=== PATIENT | female | born 1965 | race Caucasian/White ===

== ENCOUNTER → 2016-07-30 | Outpatient (CLI) | payer MEDICAID ==
--- NOTE | 2016-08-03 11:34 | RADIOLOGY REPORT PS360 ---
DIG MAMM-SCREEN JOSE W/CAD CAD Screening COMPARISON: Digital mammograms 10/12/2012 and 07/20/2015 INDICATION: There is a history of breast cancer in patient's maternal aunt TECHNIQUE: Standard CC and MLO images were obtained. R2 CAD reviewed. FINDINGS: The breasts are composed primarily of fat with scattered fiber glandular densities throughout both breast again showing more prominent glandular elements in the subareolar region of the right breast when compared to the left this asymmetry is stable and unchanged from previous studies. There is no new or suspicious lesion in either breast and there are no suspicious microcalcifications. IMPRESSION: Fatty type breast parenchyma with no suspicious lesion seen recommend yearly follow-up BI-RADS CATEGORY: 1_Negative RECOMMENDED FOLLOWUP: 12M 12 MONTH FOLLOW-UP (A letter has been sent to the patient regarding results of the study.)
== END ==
LOC: RAD 09:19
DX: Z12.31 Encounter for screening mammogram for malignant neoplasm of breast (principal)
CPT/HCPCS: G0202

== ENCOUNTER 2016-11-18 06:09 | Day surgery (SDC) | payer MEDICAID ==
[~2016-11-18] VITALS: Ht 149.9 cm; Wt 80.3 kg
--- NOTE | 2016-11-18 07:53 | Operative Note ---
Procedure/Operative Record Date of Procedure: 11/18/16 Referring physician: Dr. Smith Pre-op diagnosis: Postmenopausal bleeding Post-op diagnosis: 1. Postmenopausal bleeding 2. Endometrial polyps. 3. RIGHT ovarian cyst (by ultrasound). Procedure performed: 1. Diagnostic hysteroscopy. 2. Endometrial polypectomy. 3. Fractional Dilatation and curettage. Surgeon: Darien Oneill Anesthesia: Gen., [employer] [facility], [place] Indications: Postmenopausal bleeding Description of procedure: After the patient was prepped and draped in usual fashion and general anesthesia was administered, examination under anesthesia revealed a normal-sized anteverted uterus, with no palpable adnexal masses (a transvaginal ultrasound shows a 2.5 cm RIGHT ovarian cyst). A weighted speculum was placed within the posterior fourchette of the vagina, and the anterior lip of the cervix was grasped with a single-tooth tenaculum. A small curette was introduced into the endocervix, with retrieval of a small amount of mucoid tissue. Uterus was then sounded in an anteverted direction to 7 cm, and easily dilated to number 20 Hegar dilators. A 1.5 percent glycine as a distending medium, and operating hysteroscope was introduced into the endometrial cavity. With the exception of a vascular polyp, the endometrium appeared normal. Polyp forceps were used to extract the polyp, and then a sharp curette was introduced into the endometrial cavity, with retrieval of a small amount of lush endometrium. Reintroduction of the hysteroscope revealed no other pathology. The instruments were removed. The sponge and needle counts correct. The estimated blood loss was 20 mL. The patient tolerated the procedure well, and was taken to PACU in excellent condition. She will be discharged today, if her vital signs are stable. EBL (ml): 20 Complications: None Specimens: Uterine curettings at 8213
--- NOTE | 2016-11-18 08:01 | Anesthesia Record ---
Anesthesia Record Part I Total IV fluids: 700 EBL (ml): 20 Urine Output: 0 B/P: 124/74 % SaO2: 96 Pulse: 89 Resps: 16 Temp: 98.2 Patient is: Drowsy, Stable Stable to PACU at: 0755 at 0801
--- NOTE | 2016-11-18 08:01 | Anesthesia Record ---
Anesthesia Record Part II Discharge time: 824 Destination: Same day surgery PACU nurse assessment review? Yes Patient is: Stable Anesthesia complications? No at 0801
[2016-11-18 09:05] LABS: HEMOGLOBIN 12.4 g/dL (12.2-16.2)
[2016-11-18 10:03] VITALS: BP 114/66
== END 2016-11-18 08:56 | disposition home or self-care (01) ==
LOC: SDC 06:09
PROVIDERS: Obstetrics & Gynecology
PROC: 0UDB8ZX Extraction of Endometrium, Via Natural or Artificial Opening Endoscopic, Diagnostic (ICD-10-PCS; 2016-11-18)
PROC: 0UB98ZX Excision of Uterus, Via Natural or Artificial Opening Endoscopic, Diagnostic (ICD-10-PCS; principal; 2016-11-18 07:30)
DX: N95.0 Postmenopausal bleeding (principal); N84.0 Polyp of corpus uteri; N83.201 Unspecified ovarian cyst, right side
CPT/HCPCS: J0131; J2405

== ENCOUNTER → 2016-11-29 | Outpatient (CLI) | payer MEDICAID | LOC: LAB 10:06 | DX: N94.89 Other specified conditions associated with female genital organs and menstrual cycle (principal); N94.9 Unspecified condition associated with female genital organs and menstrual cycle ==